=== PATIENT | male | born 1975 | race Two or more races ===

== ENCOUNTER 2019-08-21 03:36 | Emergency (ER) | payer MEDICAID ==
[~2019-08-21] VITALS: Ht 167.6 cm; Wt 65.8 kg
[2019-08-21] MEDS ORDERED: SODIUM CHLORIDE 0.9% 1,000 ML IV ONE (06:15)
[2019-08-21] MEDS ORDERED: ONDANSETRON HCL 4 MG/2 ML VIAL IV ONE (06:15)
[2019-08-21] MEDS ORDERED: MORPHINE SULFATE 4 MG/ML SYR/VIAL IV ONE (06:15)
[2019-08-21 06:28] LABS: Basophils # (auto) 0 uL; Basophils % (auto) 0.5 % (0.0-2.0); Eosinophils # (auto) 0.1 uL; Eosinophils % (auto) 1.9 % (0.0-7.0); Hematocrit 39.9 % (41.0-53.0); Hemoglobin 13.8 g/dL (13.5-17.5); Lymphocytes # (auto) 1.8 uL; Lymphocytes % (auto) 32.3 % (10.0-50.0); Mean Corpuscular Hemoglobin 32.2 pg (28.0-32.0); Mean Corpuscular Hgb Conc. 34.6 g/dL (32.0-36.0); Mean Corpuscular Volume 93.2 fL (80.0-100.0); Monocytes # (auto) 0.4 uL; Monocytes % (auto) 6.6 % (0.0-12.0); Neutrophils # (auto) 3.2 uL; Neutrophils % (auto) 58.7 % (37.0-80.0); Nucleated Red Blood Cells % 0.1 %; Platelet Count (auto) 226 10^3/uL (140-450); Red Blood Cells 4.29 10^6/uL (4.5-5.90); Red Cell Distribution Width 13.6 % (11.8-14.3); White Blood Cell 5.5 10^3/uL (4.4-10.8)
[2019-08-21] MEDS ORDERED: diphenhdrAMINE HCL 50 MG/1 ML VL IV ONE (06:30)
[2019-08-21 06:44] LABS: Albumin 3.4 g/dL (3.4-5.0); Amylase 115 U/L (25-115); Anion Gap 6 (5-15); Blood Urea Nitrogen 15 mg/dL (7-18); Calcium 7.9 mg/dL (8.5-10.1); Carbon Dioxide 26 mmol/L (21-32); Chloride 112 mmol/L (98-107); Glucose 103 mg/dL (74-106); Lipase 194 U/L (73-393); Potassium 3.8 mmol/L (3.5-5.1); Sodium 144 mmol/L (136-145)
[2019-08-21 06:47] LABS: Alanine Aminotransferase 20 U/L (16-61); Alkaline Phosphatase 82 U/L (45-117); Aspartate Aminotransferase 15 U/L (15-37); BUN/Creatinine Ratio 20.5; Bilirubin, Total < 0.1 mg/dL (0.2-1.0); GFR African American 150 mL/min; GFR Non-African American 124 mL/min; Total Protein 6.7 g/dL (6.4-8.2)
[2019-08-21 09:01] VITALS: BP 100/64
== END 2019-08-21 11:08 | disposition left against medical advice (07) ==
LOC: ER 03:41
DX: K80.20 Calculus of gallbladder without cholecystitis without obstruction (principal); K40.20 Bilateral inguinal hernia, without obstruction or gangrene, not specified as recurrent; K21.9 Gastro-esophageal reflux disease without esophagitis; R11.2 Nausea with vomiting, unspecified; Z88.8 Allergy status to other drugs, medicaments and biological substances
CPT/HCPCS: 36415; 74176; 80053; 82150; 83690; 85025; 96361; 96374; 96375; 99284; J1200; J2270; J2405; J7030